=== PATIENT | female | born 1950 | race Asian ===

== ENCOUNTER 2017-01-05 08:32 | Emergency (ER) | payer OTHER ==
[~2017-01-05] VITALS: Ht 154.9 cm; Wt 54.4 kg
[2017-01-05 10:14] VITALS: BP 125/76
== END 2017-01-05 10:14 | disposition home or self-care (01) ==
LOC: ED 08:32
DX: S93.401A Sprain of unspecified ligament of right ankle, initial encounter (principal); W01.0XXA Fall on same level from slipping, tripping and stumbling without subsequent striking against object, initial encounter; Y93.89 Activity, other specified; Y92.89 Other specified places as the place of occurrence of the external cause; Y99.8 Other external cause status
CPT/HCPCS: Q0092

== ENCOUNTER 2019-05-10 08:17 | Day surgery (SDC) | payer OTHER ==
[~2019-05-10] VITALS: Ht 154.9 cm; Wt 57.1 kg
[2019-05-10 08:44] VITALS: BP 135/74
[2019-05-10 11:02] VITALS: BP 111/66
== END 2019-05-10 11:10 | disposition home or self-care (01) ==
LOC: GI 08:17 → OR 11:00 → GI 11:10 → OR 11:15
DX: K21.9 Gastro-esophageal reflux disease without esophagitis (principal); K27.9 Peptic ulcer, site unspecified, unspecified as acute or chronic, without hemorrhage or perforation; K30 Functional dyspepsia; K29.50 Unspecified chronic gastritis without bleeding; I10 Essential (primary) hypertension; E78.5 Hyperlipidemia, unspecified; Z88.8 Allergy status to other drugs, medicaments and biological substances; Z79.899 Other long term (current) drug therapy; M19.90 Unspecified osteoarthritis, unspecified site; Z98.890 Other specified postprocedural states
CPT/HCPCS: 43235; J1200; J1610; J2250; J2310; J3010; J3490

== ENCOUNTER → 2019-10-20 | Outpatient (CLI) | payer OTHER | END | disposition home or self-care (01) | LOC: MI 13:00 | PROVIDERS: ATTEND Family Medicine | PROC: BP38ZZZ Magnetic Resonance Imaging (MRI) of Right Shoulder (ICD-10-PCS; principal; 2019-10-20) | DX: M25.511 Pain in right shoulder (principal); M79.621 Pain in right upper arm ==